=== PATIENT | male | born 1965 | race Caucasian/White ===

== ENCOUNTER 2016-09-17 13:13 | Emergency (ER) | payer OTHER ==
[2013-05-02 08:01] VITALS: BMI 35.9
[~2016-09-17 13:13] MED LIST: CELEXA10 MG; NAPROSYN250 MG PO; NORCO 10/325 TA1 TA1 PO; ZYRTEC10 MG PO
== END 2016-09-17 15:12 | disposition home or self-care (01) ==
LOC: D.ER 13:13
DX: S90.31XA Contusion of right foot, initial encounter (principal); W22.8XXA Striking against or struck by other objects, initial encounter; Y93.89 Activity, other specified; Y92.019 Unspecified place in single-family (private) house as the place of occurrence of the external cause; E78.5 Hyperlipidemia, unspecified

== ENCOUNTER → 2017-08-15 12:18 | Outpatient (CLI) | payer OTHER ==
[2013-05-02 08:01] VITALS: BMI 35.9
--- NOTE | ~2017-08-15 | EC ---
PATIENT:DONALD WINSLOW DATE OF SERVICE: 08/15/17 SEX: M MEDICAL RECORD: [id number] DATE OF : 61 LOCATION:[facility] AGE OF PATIENT: 52 ADMISSION DATE: 08/15/17 REFERRING PHYSICIAN: INTERPRETING PHYSICIAN: SAMUEL SABILLON MD ECHOCARDIOGRAM REPORT ECHO CHARGES 4 ECHO COMPLETE CLINICAL DIAGNOSIS: CARDIOMYOPATHY ECHOCARDIOGRAPHIC MEASUREMENTS (adult normal given) AC root (d.<3.7cm) 3.6 cm LV Septum d (<1.2 cm> 1.3 cm Valve Excursion 2.1 cm LV Septum (systole) 2.1 cm Left Atria (s.<4.0cm> 4.2 cm LVPW d(<1.2cm) 1.4 cm RV (d.<2.3cm) 3.4 cm LVPW (sytole) 2.1 cm LV diastole(<5.6CM) 6.1 cm MV E-F(>70mm/sec) cm LV systole 4.3 cm LVOT Diameter 2.2 cm MV exc.(>10mm) cm Est.ejection fraction (50-75%) % Pericardial Effusion N DOPPLER: LVIT cm/sec A 114 cm/sec E 94.0 cm/sec LA cm/sec RVSP 31.0 mmHg LVOT 107 cm/sec AOP1/2T m/s Asc. Ao 141 cm/sec RVOT 67.0 cm/sec RA cm/sec PA 101 cm/sec AV Gradient Peak 8.0 mmHg AV Mean 4.3 mmHg AV Area 2.0 cm MV Gradient Peak 7.9 mmHg MV Mean 2.8 mmHg MV Area cm COMMENTS: Vending Machine Coin Collector: Emani SHARIF MILLER Post Manager: 1 Dr. Sabillon TAPE# PACS DATE OF SERVICE: 08/15/2017 DATE OF SERVICE: 08/15/2017 ECHOCARDIOGRAM FINDINGS: 1. Left ventricle chamber size is within normal limits. Left ventricular systolic function is normal. Overall ejection fraction estimated at 55%. 2. Left atrium is enlarged at 4.2 cm. Right atrium and right ventricular ECHOCARDIOGRAM REPORT [id number] DONALD WINSLOW chamber sizes are upper limits of normal. 3. Valvular structures have normal structure and motion. 4. Doppler interrogation reveals mild mitral regurgitation, mild tricuspid regurgitation, no other valvular insufficiency or stenosis. Pulmonary systolic pressure is estimated at 32 mmHg. 5. No evidence of pericardial effusion or left ventricular thrombus. TRANSINT:[id number] Voice Confirmation ID: [id number] DOCUMENT ID: [id number] SAMUEL SABILLON MD at 1148 CC: [id number] DICTATION DATE: 08/15/17 1643 PRODUCTION LEADER: 08/15/17 1848 DEP CLI 08/15/17 [place] [id number]
== END | disposition home or self-care (01) ==
LOC: D.ECHO 12:18
DX: I42.9 Cardiomyopathy, unspecified (principal)

== ENCOUNTER 2020-10-24 21:17 | Inpatient (IN) | payer OTHER ==
[~2020-10-24] VITALS: Ht 177.8 cm; Wt 117.9 kg
--- NOTE | ~2020-10-24 | HEMODYNAMI ---
PATIENT:DONALD WINSLOW MEDICAL RECORD: [id number] : 61 LOCATION:D. D.2108 ADMISSION DATE: 10/25/20 Generatedon:115:29 Patient name: DONALD WINSLOW Patient #: [id number] SSN: : 1965 Date of study: 10/27/2020 Page: Of Hemodynamic Procedure Report Patient Data Patient Demographics Procedure consent was obtained First Name: DONALD Gender: Male Last Name: GOLDY : 1965 [facility] Initial: IRVING Age: 55 year(s) Patient #: [id number] Race: Additional ID: [id number] Contact details Address: [address] [place] [address] State: [place] City: [place] Zip code: [address] Past Medical History Allergies Allergen Reaction Date Comments Reported Iodine 10/27/2020 Admission Admission Data Admission Date: 10/25/2020 Admission Time: 16:30 Admit Source: Emergency Insurance Payor: [facility] Room #: D.2108 Height (in.): 70 BSA: 2.29 (m2) Height (cm.): 177.8 BMI: 35.87 (kg/m2) Weight (lbs.): 249.98 Weight (kg.): 113.39 Lab Results Lab Result Date: 10/27/2020 Lab Result Time: 0:00 Biochemistry Name Units Result Min Max Creatinine mg/dl 1.2 --(---*)-- 0.6 1.3 CBC Name Units Result Min Max Hemoglobin g/dl 12.9 -*(----)-- 13.5 17.5 Procedure Procedure Types Cath Procedure Diagnostic Procedure [facility] w/Coronaries Sedation Charges Moderate Sedation 10-24 minutes Procedure Description Procedure Date Procedure Date: 10/27/2020 Procedure Start Time: 15:14 Procedure End Time: 15:27 Procedure Staff Name Function Sam Burns MD Performing Physician Little Escamilla RT Monitor Odette Fenton RN Nurse Maciej Goel RN Nurse Marilyn Aden RT Scrub Procedure Data Cath Procedure Fluoroscopy Diagnostic fluoroscopy Total fluoroscopy Time: 1.9 time: 1.9 min min Diagnostic fluoroscopy Total fluoroscopy dose: 783 dose: 783 mGy mGy Contrast Material Contrast Material Type Amount (ml) Isovue 300 83 Entry Location Entry Primary Successful Side Size Upsize Upsize Entry Closure Gomes ccessful Closure Location (Fr) 1 (Fr) 2 (Fr) Remarks Device Remarks Radial Right 6 Fr Mechanical artery Short Compression Estimated blood loss: 5 ml Diagnostic catheters Device Type Used For End Catheter Placement DIAGNOSTIC Brewster 110cm 5 Procedure Fr catheter ([id number]) DIAGNOSTIC Pigtail 5Fr Ventriculography catheter ([id number]) Procedure Complications No complications Procedure Medications Medication Administration Route Dosage Oxygen etCO2 Nasal cannula 2 l/min Lidocaine 2% added to field 20 Heparin Flush Bag added to field 2 bags (1000units/500ml NS) 0.9% NaCl I.V. 100 ml/hr Benadryl I.V. 50 mg Radial Cocktail added to field 1 syringe (Verapamil 2mg/Nitro 400mcg/Heparin 1500units) Fentanyl I.V. 50 mcg Versed I.V. 1 mg Fentanyl I.V. 50 mcg Versed I.V. 1 mg Fentanyl I.V. 50 mcg Versed I.V. 1 mg Versed I.V. 1 mg Fentanyl I.V. 50 mcg Radial Cocktail added to field 1 syringe (Verapamil 2mg/Nitro 400mcg/Heparin 1500units) Hemodynamics Rest BSA: 2.29 (m2) HGB: 12.9 (g/dl) O2 Consumption: Estimated: 286.4 (ml/min) O2 Con sumption indexed: Estimated:125.07 (ml/min/m) Heart Rate: 88 (bpm) Pressure Samples Time Site Value (mmHg) Purpose Heart Use Rate(bpm) 15:17 LV 128/13,37 Snapshot 96 15:18 AO 110/72(87) Pullback 92 15:18 LV 122/9,35 Pullback 92 Gradients Valve Time Site 1 Site 2 Mean SEP/DFP Peak To Heart Use (mmHg) (sec/min) Peak Rate (mmHg) (bpm) Aortic 15:18 LV AO 7 19 12 92 122/9,35 110/72(87) Calculations Valve P-P Mean Valve Index Valve Source Name Gradient Area Flow (cm2) Aortic 12 7 12 7 Snapshots Pre Cath Intra NCS Post Cath Vital Signs Time Heart Resp SPO2 etCO2 NIBP (mmHg) Rhythm Pain Sedation Rate (ipm) (%) (mmHg) Status Level (bpm) 14:58:03 86 18 98 27.8 124/77(94) NSR 0 (11) 10(A) , No pain 15:02:14 88 24 99 22.6 133/88(100) NSR 0 (11) 10(A) , No pain 15:06:27 88 17 100 27 123/81(97) NSR 0 (11) 10(A) , No pain 15:10:37 89 18 96 26.3 127/81(93) NSR 0 (11) 10(A) , No pain 15:14:49 91 12 95 27 121/83(111) NSR 0 (11) 9(A) , No pain 15:19:03 92 18 93 27.8 124/72(92) NSR 0 (11) 9(A) , No pain 15:23:17 89 14 95 30.8 121/77(94) NSR 0 (11) 10(A) , No pain 15:27:35 18 No Cuff NSR 0 (11) 10(A) , No pain Medications Time Medication Route Dose Verified Delivered Reason Notes Effectiveness by by 15:03:07 Oxygen etCO2 2 l/min Sam Maciej used for Nasal Grant Goel haunted history tour guide cannula 15:03:22 Lidocaine 2% added 20ml Sam Sam for local to vial Grant Burns MD anesthetic field 15:03:29 Heparin Flush added 2 bags Sam Sam used for Bag to Grant Burns MD procedure (1000units/500ml field NS) 15:03:38 0.9% NaCl I.V. 100 Sam Buffie Per ml/hr Grant Fenton RN physician 15:03:47 Benadryl I.V. 50 mg Sam Buffie used for Grant Fenton RN procedure 15:04:08 Radial Cocktail added 1 Sam Sam for (Verapamil to syringe Grant Burns MD vasodilation 2mg/Nitro field 400mcg/Heparin 1500units) 15:06:04 Fentanyl I.V. 50 mcg Sam Maciej for sedation Grant Goel RN 15:06:06 Radial Cocktail added 1 Sam Sam for (Verapamil to syringe Grant Burns MD vasodilation 2mg/Nitro field 400mcg/Heparin 1500units) 15:06:10 Versed I.V. 1 mg Sam Maciej for sedation Grant Goel RN 15:11:13 Fentanyl I.V. 50 mcg Sam Maciej for sedation Grant Goel RN 15:11:18 Versed I.V. 1 mg Sam Maciej for sedation Grant Goel RN 15:14:49 Fentanyl I.V. 50 mcg Sam Maciej for sedation Grant Goel RN 15:14:52 Versed I.V. 1 mg Sam Maciej for sedation Grant Goel RN 15:16:53 Versed I.V. 1 mg Sam Maciej for sedation Grant Goel RN 15:16:57 Fentanyl I.V. 50 mcg Sam Maciej for sedation Grant Goel RN Procedure Log Time Note 14:42:55 Informed consent obtained and on chart 14:45:00 Patient allergic to Iodine 14:45:06 Admit Source: Emergency department 14:45:13 Insurance Payor : [facility] 14:45:22 Patient Height : 70 inches 14:45:26 Patient Weight : 249.98 lbs 14:46:21 Lab Result : Hemoglobin 12.9 g/dl 14:46:21 Lab Result : Creatinine 1.2 mg/dl 14:46:25 Diagnostic Cath Status : Urgent 14:46:48 Procedure Status Urgent Heart Cath (IP). 14:46:51 Odette Fenton RN sent for patient. Start room use. 14:46:52 Time tracking: Regular hours (M-F 7:00 - 5:00) 14:46:56 Plan of Care:Hemodynamics will remain stable., Cardiac rhythm will remain stable., Comfort level will be maintained., Respiratory function will remain adequate., Patient/ family verbilizes understanding of procedure., Procedure tolerated without complication., Recovers from procedure without complications.. 14:51:38 Patient received from PCU to CCL 1 Alert and oriented. Tansferred to table in Supine position. 14:51:39 Warm blankets applied, and jhony hugger turned on for patient comfort. 14:51:40 Correct patient and procedure confirmed by team. 14:51:40 ECG and BP/O2 sat monitors applied to patient. 14:51:41 Full Disclosure recording started 14:57:01 Vital chart was started 15:03:07 Oxygen 2 l/min etCO2 Nasal cannula was administered by Maciej Goel RN; used for procedure; Verbal order read back and verified. 15:03:14 Baseline sample Acquired. 15:03:21 H&P Date Dictated: 10/27/2020 Within 30 days and on chart.. 15:03:22 Lidocaine 2% 20ml vial added to field was administered by Sam Burns MD; for local anesthetic; Verbal order read back and verified. 15:03:23 Pre-procedure instructions explained to patient. 15:03:28 Pre-op teaching completed and patient verbalized understanding. 15:03:29 Heparin Flush Bag (1000units/500ml NS) 2 bags added to field was administered by Sam Burns MD; used for procedure; Verbal order read back and verified. 15:03:30 Family in patients room. 15:03:32 Is the patient allergic to Iodine/contrast media? Yes. 15:03:33 Was the patient premedicated? Yes 15:03:37 Is patient on blood thinner?No 15:03:38 0.9% NaCl 100 ml/hr I.V. was administered by Odette Fenton RN; Per physician; Verbal order read back and verified. 15:03:41 If diabetic: On Metformin? No 15:03:47 Benadryl 50 mg I.V. was administered by Odette Fenton RN; used for procedure; Verbal order read back and verified. 15:03:47 Snore? Yes 15:03:49 Sleep apnea? No 15:04:04 IV patent on arrival in right hand with 0.9% NaCl at O. 15:04:08 Radial Cocktail (Verapamil 2mg/Nitro 400mcg/Heparin 1500units) 1 syringe added to field was administered by Sam Burns MD; for vasodilation; Verbal order read back and verified. 15:04:09 Lab results completed and on chart. 15:04:11 Alarms reviewed by R. N. 15:04:12 Sharps counted by scrub and verified by R.N. 15:04:14 Physician paged 15:05:52 --------ALL STOP TIME OUT------ 15:05:53 Final Timeout: patient, procedure, and site verified with staff and physician. All members of the team are in agreement. 15:05:58 Right Radial & Right Groin site verified by team. 15:06:03 Fire Safety Assessment: A--An alcohol-based skin anteseptic being used preoperatively., C--Open oxygen or nitrous oxide is being used., D--An ESU, laser, or fiber-optic light is being used. 15:06:04 Fentanyl 50 mcg I.V. was administered by Maciej Goel RN; for sedation; Verbal order read back and verified. 15:06:06 Radial Cocktail (Verapamil 2mg/Nitro 400mcg/Heparin 1500units) 1 syringe added to field was administered by Sam Burns MD; for vasodilation; Verbal order read back and verified. 15:06:06 Physical assessment completed. ASA score P 3 - A patient with severe systemic disease as per Sam Burns MD. 15:06:10 Versed 1 mg I.V. was administered by Maciej Goel RN; for sedation; Verbal order read back and verified. 15:06:16 2) 60-89 Mildly reduced kidney function, and other findings (as for stage 1) point to kidney disease. 15:06:33 Maximum allowable contrast dose (3.7 X eGFR X 0.75)183 ml. 15:06:39 Risk of Mortality: .1 15:06:43 Risk of blood transfusion: .1 15:06:46 Risk of NANCY: 1.4 15:06:53 Right Radial & Right Groin area was prepped with chlora-prep and draped in sterile fashion 15:10:27 Zero performed for pressure channel P1 15:11:13 Fentanyl 50 mcg I.V. was administered by Maciej Goel RN; for sedation; Verbal order read back and verified. 15:11:18 Versed 1 mg I.V. was administered by Maciej Goel RN; for sedation; Verbal order read back and verified. 15:14:02 Use device set Radial Dx or PCI 15:14:07 Procedure started. 15:14:23 Local anesthetic to right radial artery with Lidocaine 2% by Sam Burns MD.INITIAL ACCESS ONLY 15:14:25 ACIST Syringe (64331) opened to sterile field. 15:14:25 Medline Cath Pack ([id number]) opened to sterile field. 15:14:25 Bag Decanter (2001S) opened to sterile field. 15:14:27 ACIST Hand Control (50593) opened to sterile field. 15:14:27 ACIST Manifold (95443) opened to sterile field. 15:14:30 MBrace Wrist Support ([id number]) opened to sterile field. 15:14:31 NEEDLE Cook 21G 4cm Radial (V46003) opened to sterile field. 15:14:32 EMERALD Guide Wire (502-188) opened to sterile field. 15:14:35 SHEATH 6FR RAIN (9506603) opened to sterile field. 15:14:49 Fentanyl 50 mcg I.V. was administered by Maciej Goel RN; for sedation; Verbal order read back and verified. 15:14:52 Versed 1 mg I.V. was administered by Maciej Goel RN; for sedation; Verbal order read back and verified. 15:15:58 A 6 Fr Short sheath was inserted into the Right Radial artery 15:16:53 Versed 1 mg I.V. was administered by Maciej Goel RN; for sedation; Verbal order read back and verified. 15:16:57 Fentanyl 50 mcg I.V. was administered by Maciej Goel RN; for sedation; Verbal order read back and verified. 15:17:13 A DIAGNOSTIC Brewster 110cm 5 Fr catheter (773571) was advanced over the wire and used for Procedure. 15:17:52 LV angiography performed. 15:18:59 LCA angiography performed. 15:20:30 RCA angiography performed. 15:20:35 Catheter removed. 15:20:58 A DIAGNOSTIC Pigtail 5Fr catheter ([id number]) was advanced over the wire and used for Ventriculography. 15:22:08 LV angiography performed. 15:22:38 EF : 25 % 15:22:43 Aortic Root visualized 15:23:04 ZEPHYR REGULAR TR BAND (801295) opened to sterile field. 15:23:21 Sheath removed intact; hemostasis achieved with Mechanical Compression to the Right Radial artery. 15:24:14 Procedure ended.(Physican Out) 15:25:05 Fluoroscopy time 01.90 minutes. 15:25:10 Fluoroscopy dose: 783 mGy 15:25:10 Flurop Dose total: 783 15:25:18 Dose Area Product 75395 mGy/cm. 15:25:26 Contrast amount:Isovue 300 83ml. 15:25:35 Maximum allowable dose exceeded? No. 15:25:44 [place] band inflated with 10cc of air. 15:25:47 Insertion/operative site no bleeding no hematoma. 15:25:50 Post Procedure Pulses reassessed and unchanged 15:25:55 Post-procedure physical assessment completed. ASA score P 2 - A patient with mild systemic disease as per Sam Burns MD. 15:26:00 Post procedure rhythm: unchanged. 15:26:07 Estimated blood loss: 5 ml 15:26:09 Post procedure instruction explained to patient.Patient verbalizes understanding. 15:26:21 Procedure and supply charges have been captured, reviewed, submitted and are correct. 15:27:19 Procedure Complication : No complications 15:27:23 Vital chart was stopped 15:27:26 [facility] Findings: mild to moderate CAD (<70%) 15:27:28 See physician's report for complete and final results. 15:27:30 Report given to [facility]. 15:27:33 Patient transfered to [facility] with Bed. 15:27:35 Procedure ended. 15:27:35 Full Disclosure recording stopped 15:27:38 End room use (Document Last) 15:27:58 End room use (Document Last) 15:28:32 End room use (Document Last) Device Usage Item Name Manufacture Quantity Catalog Hospital Part Current Minima l Lot# / Number Charge Number Stock Stock Serial# Code ACIST Acist 1 61323 743159 064181 240515 20 Syringe Medical (54626) Systems Inc Medline Medline 1 [id number] 326604 43874 710966 5 Cath Pack ([id number]) Bag Microtek 1 220111 27204 121546 5 Decanter Medical Inc. () ACIST Hand Acist 1 85492 510331 330775 996374 5 Control Medical (25610) Systems Inc ACIST Acist 1 88131 063544 035516 636546 5 Manifold Medical (44882) Systems Inc MBrace Advanced 1 140-0250-00 595246 21760 742537 5 Wrist Vascular Support Dynamics ([id number]) NEEDLE [facility] Medical 1 [id number] 770665 679511 813261 5 21G 4cm Radial (F80272) EMERALD Cardinal 1 502-455 936259 983185 959949 5 Guide Wire [facility] (277-163) SHEATH 6FR Cardinal 1 8100644 645678 3041480 359263 5 [facility] Health (9093072) DIAGNOSTIC Terumo 1 40-5013 598030 551328 113709 5 Brewster 110cm 5 Fr catheter (074494) DIAGNOSTIC Cardinal 1 [id number] 718596 415193 955713 5 Pigtail 5Fr Health catheter (277164R) ZEPHYR Cardinal 1 325427 007409 4294220 367432 5 REGULAR TR Health BAND (144237) Signature Audit [place] Stage Time Signature Unsigned Intra-Procedure 10/27/2020 Little Escamilla 3:27:58 PM RT(R) Intra-Procedure 10/27/2020 Odette Fenton RN 3:28:32 PM Intra-Procedure 10/27/2020 Sam Burns MD 3:29:16 PM [facility] [address] [place] [address]
[2020-10-24] MEDS ORDERED: ZYLOPRIM300 MG PO (21:39)
[2020-10-24] MEDS ORDERED: BAYER CHEWABLE81 MG PO (21:40)
[2020-10-24 22:26] LABS: BASOPHILS 0.2 % (0-2); EOSINOPHILS 1.4 % (0-7); HEMATOCRIT 40.7 % (42.0-54.0); IMMATURE GRANULOCYTES 0.2 % (0-5); LYMPHOCYTE ABS# 0.95 10x3/uL (1.32-3.57); LYMPHOCYTES 10.8 % (15-50); MCH 27.8 pg (26.0-34.0); MCHC 31.9 g/dL (31.0-37.0); MCV 87.2 fL (80.0-100.0); MEAN PLATELET VOLUME 11.3 fL (7.4-10.4); MONOCYTES 7.5 % (2-11); NEUTROPHIL ABS# 7.04 10x3/uL (1.78-5.38); NEUTROPHILS 79.9 % (40-80); PLATELET COUNT 251 10x3/uL (130-400); RBC 4.67 10x6/uL (4.20-6.10); RDW 14.7 % (11.5-14.5); WBC 8.8 10x3/uL (4.8-10.8)
[2020-10-24 22:36] LABS: APTT 28.5 SECONDS (22.8-39.4); INR 1.43 (0.85-1.17); PROTIME 16.2 SECONDS (11.6-15.0)
[2020-10-24 22:37] LABS: D-DIMER-QUANTITATIVE 1.89 ug/mLFEU (0.20-0.54)
[2020-10-24 22:38] LABS: CALC OSMOLALITY 276 mosm/kg (275-300); CALCIUM 8.8 mg/dL (8.5-10.1); CARBON DIOXIDE 22.6 mmol/L (21.0-32.0); CHLORIDE - SERUM 103 mmol/L (98-107); CREATININE - SERUM 1.3 mg/dL (0.6-1.3); GLUCOSE 145 mg/dL (74-106); POTASSIUM - SERUM 3.7 mmol/L (3.5-5.1); SODIUM 136 mmol/L (136-145); UREA NITROGEN 19 mg/dL (7-18); eGFR NON AFRICAN AMERICAN 60 mL/min (90-120)
[2020-10-24 22:54] LABS: ALBUMIN 3.4 g/dL (3.4-5.0); ALKALINE PHOSPHATASE 103 U/L (30-120); ALT (SGPT) 44 U/L (10-68); BILIRUBIN - TOTAL 3.28 mg/dL (0.2-1.3); C-REACTIVE PROTEIN 2.3 mg/dL (0.0-0.9); CKMB 1.1 U/L (0.0-3.6); CREATINE KINASE 112 UL (21-232); PRO BNP 12203 pg/mL (0-125); PROTEIN - SERUM 6.5 g/dL (6.4-8.2); TROPONIN-I < 0.017 ng/mL (0.000-0.060)
--- NOTE | 2020-10-25 01:06 | NUR ---
DEPART ASSESSMENT CHARTED 10/25/20 0102 CHARTED BY MISTAKE. DONE ON WRONG PT.
--- NOTE | 2020-10-25 01:24 | NUR ---
REPORT TO DAVID GERMAN @ 0115. PT TRANSPORTED TO FLOOR VIA WHEELCHAIR BY RN. BELONGINGS INCLUDED CLOTHING, CELL PHONE, AND CPAP WHICH WERE ALL TAKEN BY PT. NO DELAY IN ROOM ASSIGNMENT. PT LEFT DEPARTMENT AT 0122. TEMP 98.1 TYMPANIC, HR 90, RR 18, SAO2 98%, B/P 138/77, PN 0. IV CONTINUED ON ADMISSION. NOTHING INFUSING.
[2020-10-25] MEDS ORDERED: ZYRTEC10 MG PO (01:45)
[2020-10-25 02:59] VITALS: BP 113/80
[2020-10-25 03:53] LABS: BILIRUBIN NEGATIVE (NEGATIVE); KETONE NEGATIVE (NEGATIVE); NITRITE NEGATIVE (NEGATIVE); UROBILINOGEN NORMAL mg/dL (< 2)
[2020-10-25 05:44] VITALS: BP 113/80; BMI 35.9
[2020-10-25 07:12] LABS: BASOPHILS 0.3 % (0-2); HEMATOCRIT 39.7 % (42.0-54.0); HEMOGLOBIN 12.8 g/dL (13.5-17.5); IMMATURE GRANULOCYTES 0.1 % (0-5); LYMPHOCYTE ABS# 1.63 10x3/uL (1.32-3.57); LYMPHOCYTES 18.9 % (15-50); MCH 28.1 pg (26.0-34.0); MCHC 32.2 g/dL (31.0-37.0); MCV 87.3 fL (80.0-100.0); MEAN PLATELET VOLUME 12.5 fL (7.4-10.4); MONOCYTES 10.7 % (2-11); NEUTROPHIL ABS# 5.78 10x3/uL (1.78-5.38); PLATELET COUNT 230 10x3/uL (130-400); RBC 4.55 10x6/uL (4.20-6.10); RDW 14.8 % (11.5-14.5); WBC 8.6 10x3/uL (4.8-10.8)
[2020-10-25 07:38] LABS: ALBUMIN 3.3 g/dL (3.4-5.0); BILIRUBIN - TOTAL 4.09 mg/dL (0.2-1.3); CALCIUM 8.7 mg/dL (8.5-10.1); CARBON DIOXIDE 20.9 mmol/L (21.0-32.0); CHOL - HDL RATIO 3.2 ratio (2.3-4.9); CREATININE - SERUM 1.2 mg/dL (0.6-1.3); MAGNESIUM - SERUM 1.9 mg/dL (1.8-2.4); PHOSPHOROUS 3.6 mg/dL (2.5-4.9); PROTEIN - SERUM 5.7 g/dL (6.4-8.2)
[2020-10-25 07:42] LABS: ANION GAP 17.4 mmol/L (8-16); POTASSIUM - SERUM 4.3 mmol/L (3.5-5.1)
[2020-10-25 12:39] VITALS: Ht 177.8 cm; Wt 117.9 kg
[2020-10-25 13:21] VITALS: BP 121/89
--- NOTE | 2020-10-25 19:30 | NUR ---
PT IN BED, AAO X 4, RESP EVEN AND UNLABORED, NO DISTRESS NOTED, CL IN REACH, SR UP X 2.
[2020-10-25 20:00] VITALS: BP 132/88
[2020-10-26] VITALS: BP 105/68
[2020-10-26 04:00] VITALS: BP 114/73
--- NOTE | 2020-10-26 04:15 | NUR ---
I have reviewed this patient and I concur with the Shift Assessment completed by the Licensed Practical Nurse today this shift.
[2020-10-26 06:25] LABS: BASOPHILS 0 % (0-2); EOSINOPHILS 0 % (0-7); HEMATOCRIT 39.9 % (42.0-54.0); HEMOGLOBIN 12.9 g/dL (13.5-17.5); IMMATURE GRANULOCYTES 0.2 % (0-5); LYMPHOCYTE ABS# 0.53 10x3/uL (1.32-3.57); MCH 27.9 pg (26.0-34.0); MCHC 32.3 g/dL (31.0-37.0); MCV 86.4 fL (80.0-100.0); MEAN PLATELET VOLUME 12.4 fL (7.4-10.4); MONOCYTES 4.3 % (2-11); NEUTROPHIL ABS# 5.08 10x3/uL (1.78-5.38); NEUTROPHILS 86.5 % (40-80); PLATELET COUNT 225 10x3/uL (130-400); RBC 4.62 10x6/uL (4.20-6.10); RDW 14.7 % (11.5-14.5)
[2020-10-26 06:27] LABS: WBC 5.9 10x3/uL (4.8-10.8)
[2020-10-26 07:28] LABS: ALBUMIN 3.2 g/dL (3.4-5.0); ANION GAP 15.8 mmol/L (8-16); BILIRUBIN - TOTAL 3.21 mg/dL (0.2-1.3); CALCIUM 8.7 mg/dL (8.5-10.1); CARBON DIOXIDE 22.2 mmol/L (21.0-32.0); CREATININE - SERUM 1.2 mg/dL (0.6-1.3); MAGNESIUM - SERUM 1.9 mg/dL (1.8-2.4); PHOSPHOROUS 3.4 mg/dL (2.5-4.9); PROTEIN - SERUM 6.3 g/dL (6.4-8.2)
[2020-10-26 08:38] VITALS: BP 112/71
[2020-10-26 10:33] LABS: CHOL - HDL RATIO 3.4 ratio (2.3-4.9); LDL-HDL RATIO 2.1 ratio (1.5-3.5)
[2020-10-26 12:12] VITALS: BP 143/80
[2020-10-26 16:27] VITALS: BP 116/74
--- NOTE | 2020-10-26 17:38 | NUR ---
RESTING IN BED. DENIES ANY NEEDS AT THIS TIME. AT BEDSIDE.
--- NOTE | 2020-10-26 19:30 | NUR ---
PT SETTING UP IN CHAIR, AAO X 4, RESP EVEN NAD UNLABORED, NO DISTRESS NOTED, CL IN REACH.
[2020-10-26 20:00] VITALS: BP 117/82
[2020-10-27] VITALS: BP 105/63
--- NOTE | 2020-10-27 03:46 | NUR ---
I have reviewed this patient and I concur with the Shift Assessment completed by the Licensed Practical Nurse today this shift.
[2020-10-27 04:00] VITALS: BP 114/71
[2020-10-27 06:10] LABS: BASOPHILS 0 % (0-2); EOSINOPHILS 0 % (0-7); HEMATOCRIT 38.7 % (42.0-54.0); HEMOGLOBIN 12.3 g/dL (13.5-17.5); IMMATURE GRANULOCYTES 0.1 % (0-5); LYMPHOCYTE ABS# 0.41 10x3/uL (1.32-3.57); LYMPHOCYTES 4.8 % (15-50); MCH 27.7 pg (26.0-34.0); MCHC 31.8 g/dL (31.0-37.0); MCV 87.2 fL (80.0-100.0); MEAN PLATELET VOLUME 12.6 fL (7.4-10.4); MONOCYTES 3.1 % (2-11); NEUTROPHIL ABS# 7.82 10x3/uL (1.78-5.38); PLATELET COUNT 233 10x3/uL (130-400); RBC 4.44 10x6/uL (4.20-6.10); RDW 14.9 % (11.5-14.5)
[2020-10-27 06:11] LABS: WBC 8.5 10x3/uL (4.8-10.8)
[2020-10-27 06:32] LABS: ALBUMIN 3.2 g/dL (3.4-5.0); ANION GAP 16.7 mmol/L (8-16); BILIRUBIN - TOTAL 1.94 mg/dL (0.2-1.3); CALCIUM 8.9 mg/dL (8.5-10.1); CREATININE - SERUM 1.1 mg/dL (0.6-1.3); PHOSPHOROUS 2.9 mg/dL (2.5-4.9); POTASSIUM - SERUM 3.7 mmol/L (3.5-5.1); PROTEIN - SERUM 6.4 g/dL (6.4-8.2)
[2020-10-27 07:42] VITALS: BP 109/66
[2020-10-27 13:26] VITALS: BP 110/59
[2020-10-27] MEDS ORDERED: SINGULAIR10 MG PO (14:53)
[2020-10-27] MEDS ORDERED: FLUTICASONE PRO16 GM NASAL (14:53)
[2020-10-27] MEDS ORDERED: ENTRESTO 24 MG1 EACH PO (14:54)
[2020-10-27 16:17] VITALS: BP 99/59
--- NOTE | 2020-10-27 16:45 | NUR ---
2 CC OF AIR REMOVED FROM TR BAND. NO BLEEDING OR HEMATOMA AT SITE.
--- NOTE | 2020-10-27 17:02 | NUR ---
DISCHARGE INSTRUCTIONS PROVIDED TO PATIENT AND . VERBALIZED UNDERSTANDING. PRINTED COPY GIVEN. WILL DISCHARGE AND REMOVE IV WHEN TR BAND IS SAFELY REMOVED.
--- NOTE | 2020-10-27 17:10 | NUR ---
REMVOVED 2 CC OF AIR FROM TR BAND. NO BLEEDING. NO HEMATOMA AT SITE.
--- NOTE | 2020-10-27 17:33 | NUR ---
TR BAND EMPTY. REMOVED AND PLACED GAUZE AND TEGADERM ON SITE. REMOVED IV.
--- NOTE | 2020-10-27 17:33 | NUR ---
REMOVED 2 CC OF AIR FROM TR BAND. NO BLEEDING. NO HEMATOMA.
== END 2020-10-27 18:50 | disposition home or self-care (01) | DRG 287 ==
LOC: D.ER 21:17 → D.EDHOLD 23:40 → OBSVTIME 23:41 → D.M2 10-25 01:01
PROVIDERS: Family Medicine; Internal Medicine Cardiovascular Disease; ADMIT Emergency Medicine; ATTEND Emergency Medicine
PROC: B2151ZZ Fluoroscopy of Left Heart using Low Osmolar Contrast (ICD-10-PCS; 2020-10-27)
PROC: 4A023N7 Measurement of Cardiac Sampling and Pressure, Left Heart, Percutaneous Approach (ICD-10-PCS; 2020-10-27)
PROC: B2111ZZ Fluoroscopy of Multiple Coronary Arteries using Low Osmolar Contrast (ICD-10-PCS; principal; 2020-10-27 14:46)
DX: I50.9 Heart failure, unspecified (principal); D64.9 Anemia, unspecified; E80.6 Other disorders of bilirubin metabolism; R00.8 Other abnormalities of heart beat; G47.33 Obstructive sleep apnea (adult) (pediatric); I42.9 Cardiomyopathy, unspecified

== ENCOUNTER → 2020-11-26 12:32 | Outpatient (CLI) | payer OTHER ==
[2020-10-25 12:39] VITALS: BMI 35.8
[~2020-11-26 12:32] MED LIST changes: +BAYER CHEWABLE81 MG PO; +ENTRESTO 24 MG1 EACH PO; +FLUTICASONE PRO16 GM NASAL; +SINGULAIR10 MG PO; +ZYLOPRIM300 MG PO
== END | disposition home or self-care (01) ==
LOC: D.HCCECHO 12:32
PROVIDERS: ATTEND Internal Medicine Cardiovascular Disease
DX: I42.0 Dilated cardiomyopathy (principal)